=== PATIENT | female | born 2000 | race Caucasian/White ===

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

== ENCOUNTER 2022-08-10 14:04 | Outpatient (REF) | payer MEDICAID, SELFPAY ==
[2022-08-12 11:33] LABS: COVID-19 RT-PCR UVMMC Result Negative (Negative)
== END 2022-08-10 14:05 | disposition home or self-care (01) ==
LOC: LBN 14:04
PROVIDERS: PCP Nurse Practitioner Family; Visit Provider Nurse Practitioner Family
DX: Z20.822 Contact with and (suspected) exposure to COVID-19 (principal)
CPT/HCPCS: U0003

== ENCOUNTER 2023-10-24 14:34 | Outpatient (REF) | payer MEDICAID, SELFPAY ==
--- NOTE | 2023-10-24 14:00 | PAPFT_PTH ---
PATIENT: Kathryn Gonzales LOC: [facility] U#:[id number] AGE/SX: 23/F ROOM: RE10/24/[address]: SCOOBY Colin : 2000 BED: DIS: 10/24/2023 SPEC #: [id number] RECD: 10/25/23 12:48 STATUS: BERHANE REQ #: [id number] DANDY: 10/24/23 14:[address]: Marilynn Yuen DEPT: COUNTS INCLUDE 234 BEDS AT THE [facility] Cytology RECD BY: Rowan Wing Tissues: 1 - CX/ENDOCX FOR PAP SMEARS Procedures: PAP THIN PREP/[facility] Screening Comments: [id number] (CHLAMYDIA/GC)
[2023-10-26 13:47] LABS: Chlamydia Result Negative (Negative); GC Result Negative (Negative)
== END 2023-10-24 14:35 | disposition home or self-care (01) ==
LOC: LBN 14:34
PROVIDERS: PCP Nurse Practitioner Family; Visit Provider Nurse Practitioner Family
DX: Z12.4 Encounter for screening for malignant neoplasm of cervix (principal); Z11.3 Encounter for screening for infections with a predominantly sexual mode of transmission
CPT/HCPCS: 87491; 87591; 88142

== ENCOUNTER 2023-10-26 05:21 | Outpatient (CLI) | payer MEDICAID, SELFPAY ==
[2023-10-26 13:51] LABS: Anion Gap 9.7 mmol/L (3-11); BUN 16 mg/dL (7-18); CO2 27.3 mmol/L (21.0-32.0); CREATININE 0.8 mg/dL (0.55-1.02); Calcium 9.4 mg/dL (8.5-10.1); Calculated LDL 73 mg/dL (<100); Chloride 105 mmol/L (98-107); Cholesterol 157 mg/dL (<200); Estimated GFR 107.44 (mL/min/1.73m2); Glucose 85 mg/dL (74-106); HDL Cholesterol 69 mg/dL (40-60); Potassium 4.3 mmol/L (3.5-5.1); Sodium 142 mmol/L (136-145); TSH (W/Ref FT4) 1.78 uIU/mL (0.36-3.74); Triglyceride 77 mg/dL (<150)
== END 2023-10-26 05:22 | disposition home or self-care (01) ==
PROVIDERS: PCP Nurse Practitioner Family; Visit Provider Nurse Practitioner Family
DX: Z00.00 Encounter for general adult medical examination without abnormal findings (principal)
CPT/HCPCS: 36415; 80048; 80061; 84443

== ENCOUNTER 2024-07-06 11:13 | Outpatient (CLI) | payer MEDICAID, SELFPAY ==
[2024-07-06 12:14] LABS: Abs Immature Grans 0.01 10^3/uL (0.0-0.06); Absolute Basophil Count 0.04 10^3/uL (0.0-0.2); Absolute Lymphocyte Count 2.43 10^3/uL (1.2-3.4); Absolute Monocyte Count 0.33 10^3/uL (0.1-0.8); Absolute Neutrophil Count 2.53 10^3/uL (1.2-6.7); Basophils % 0.7 %; Eosinophils % 1.8 %; HCT 39.4 % (36.0-46.0); HGB 13.1 g/dL (11.2-15.7); Immature Grans % 0.2 %; Lymphocytes % 44.7 %; MCH 29.8 pg (27.0-33.0); MCHC 33.2 % (32.0-36.0); MCV 90 fL (80-95); MPV 10.8 fL (8.0-11.0); Monocytes % 6.1 %; Neutrophils % 46.5 %; Platelet Count 256 10^3/uL (130-400); RBC 4.39 10^6/uL (3.93-5.22); RDW 11.5 % (11.7-14.6); RDW-SD 37.6 fL; WBC 5.44 10^3/uL (4.4-10.8)
[2024-07-06 12:59] LABS: ALT 26 U/L (14-59); AST 14 U/L (15-37); Albumin 3.5 g/dL (3.4-5.0); Alkaline Phosphatase 52 U/L (46-116); Anion Gap 6.5 mmol/L (3-11); BUN 14 mg/dL (7-18); Bilirubin, Total 0.26 mg/dL (0.2-1.0); CO2 29.5 mmol/L (21.0-32.0); CREATININE 0.9 mg/dL (0.55-1.02); Chloride 107 mmol/L (98-107); Glucose 90 mg/dL (74-106); Lipase 30 U/L (<78); Potassium 4.2 mmol/L (3.5-5.1); Sodium 143 mmol/L (136-145)
[2024-07-06 13:05] LABS: Calcium 8.9 mg/dL (8.5-10.1)
== END 2024-07-06 11:14 | disposition home or self-care (01) ==
LOC: LBO 11:15
PROVIDERS: PCP Nurse Practitioner Family; Visit Provider Nurse Practitioner Family
DX: R10.13 Epigastric pain (principal)
CPT/HCPCS: 36415; 80053; 83690; 85025

== ENCOUNTER 2024-07-27 00:14 | Outpatient (CLI) | payer MEDICAID, SELFPAY ==
--- NOTE | 2024-07-27 06:30 | DI.CT_ITS ---
Exam(s) CT ABDOMEN PELVIS W EXAM: CT ABDOMEN PELVIS W CLINICAL HISTORY: ? pancreatitis,epigastric pain,r10.13 TECHNIQUE: Imaging Protocol: Axial computed tomography images with coronal and sagittal reformatted images were created and reviewed. CONTRAST MATERIAL: Intravenous: Omnipaque 350 Contrast volume:75 mL Oral: Yes COMPARISON: CT CT ABD AND PELVIS W/CONTRAST from 04/04/2024 FINDINGS: ABDOMEN: Lung Bases: No acute abnormality. Liver: Normal density. No measurable mass. Portal, Superior Mesenteric, and Splenic Veins: Unremarkable. Gallbladder and Biliary Tract: No radiodense calculus or dilation. Pancreas: Normal density, no abnormal calcifications or inflammatory process. Spleen: Normal. Adrenals: No masses seen. Kidneys: Normal size, contour and axis. No radiodense stones or obstructive uropathy. No masses seen. Abdominal Aorta: Abdominal portion non-dilated. Bowel: No obstruction or bowel wall thickening. No evidence of appendicitis. Peritoneal Cavity: No ascites, collection or mesenteric inflammatory response. No free air. Lymph Nodes: Within normal limits. Bones: Within normal limits for the patient's age. Soft Tissues: Unremarkable. PELVIS: Bladder: Symmetric distention, no gross wall thickening. Reproductive Organs: Unremarkable as visualized. Lymph Nodes: Within normal limits. Bones: Within normal limits for the patient's age. IMPRESSION: No acute abdominal or pelvic process. RADIATION DOSE DELIVERED: 224.15mGy.cm Total DLP DATA REPOSITORY: All CT scans at this facility are submitted to the National Radiology Data Registry (NRDR) Dose Index Registry (DIR) with the [employer] (ACR). RADIATION OPTIMIZATION: All CT scans at this facility use at least one of these dose optimization te chniques: automated exposure control; mA and/or kV adjustment per patient size (includes targeted exa ms where dose is matched to clinical indication); or iterative reconstruction.
[2024-07-27] MEDS: Barium Sulfate 2% W/V-Berry Smoothie 450 ML BTL PO ×2 (07:59→08:00)
[2024-07-27] MEDS: Normal Saline - Diluent 50 ML VIAL IJ (10:27)
[2024-07-27] MEDS: Omnipaque 350 MG/ML 100 ML BTL 75 ML IJ (10:28)
== END 2024-07-27 00:34 ==
LOC: DI 00:14
PROVIDERS: PCP Nurse Practitioner Family; Visit Provider Nurse Practitioner Family
DX: R10.13 Epigastric pain (principal)
CPT/HCPCS: 74177; J3490

== ENCOUNTER 2024-09-11 00:28 | Outpatient (CLI) | payer MEDICAID, SELFPAY ==
--- NOTE | 2024-09-11 05:45 | DI.US_ITS ---
Exam(s) US ABDOMEN LIMITED EXAM: US ABDOMEN LIMITED CLINICAL HISTORY: epigastric pain, ? cholelithiasis, pre rome scan TECHNIQUE: Ultrasound abdomen performed using standard protocol. COMPARISON: CT CT ABDOMEN PELVIS W from 07/27/2024 FINDINGS: LIVER: Normal size. Normalechogenicity. No focal liver lesions are seen.. GALLBLADDER: No evidence of cholelithiasis. No evidence of wall thickening. No pericholecystic fluid identified. PERKINS'S SIGN: Negative. BILIARY SYSTEM: No intrahepatic or extrahepatic biliary ductal dilation. RIGHT KIDNEY: Normal size. No evidence of renal calculi. No evidence of hydronephrosis. No suspicious renal mass. No cyst identified. PANCREAS: Normal where visualized. ABDOMINAL AORTA AND IVC: Visualized portions normal caliber. ASCITES: None seen. IMPRESSION: Normal sonographic appearance of the right upper quadrant. DATA REPOSITORY:
--- NOTE | 2024-09-11 05:45 | DI.NM_ITS ---
Exam(s) NM HEPATOBILIARY CCK GRP EXAM: NM HEPATOBILIARY CCK GRP CLINICAL HISTORY: Mid epigastric pain,? cholelithiasis. TECHNIQUE: Injected dose: 5 mCi Tc-99 mebrofenin Initial dynamic images: 60 minutes Post-Gallbladder fillin.02 mcg/kg CCK intravenously over a 30min infusion. Additional images: 45 minute dynamic during CCK administration. COMPARISON: US US ABDOMEN LIMITED from 09/11/2024 FINDINGS: Normal hepatic transit time. Prompt excretion into the small bowel. Prompt excretion into the gallbladder. Gallbladder ejection fraction: Low gallbladder ejection fraction of 5 percent. IMPRESSION: Low gallbladder ejection fraction of 5 percent. SNM guidelines: Gallbladder visualization should be present by 3 hours. Delayed pdbvwqd-fq-nacvi hernandez sit beyond 60 min raises the suspicion for partial common bile duct (CBD) obstruction. Gallbladder ejection fraction <35% has a good correlation with acalculous disease (i.e., chronic acal culous cholecystitis, cystic duct syndrome, sphincter of Oddi disease).
[2024-09-11] MEDS: Sincalide 5 MCG VIAL 1.2 MCG IJ (11:23)
[2024-09-11] MEDS: Water,Injection,Sterile 10 ML VIAL IJ (11:24)
== END 2024-09-11 00:48 ==
LOC: DI 00:29
PROVIDERS: PCP Nurse Practitioner Family; Visit Provider Surgery
DX: R10.13 Epigastric pain (principal)
CPT/HCPCS: 78227; J2805; 76705

== ENCOUNTER 2024-10-24 05:58 | Day surgery (SDC) | payer MEDICAID, SELFPAY ==
--- NOTE | 2024-10-23 20:46 | HPE_ITS ---
Assessment and Plan Assessment and plan (1) Biliary dyskinesia: Status: Acute Assessment and plan: We reviewed the plan for laparoscopic cholecystectomy today, and I think Melody has a very good understanding of what to expect. We can proceed with surgery as planned History of Present Illness History of Present Illness Chief Complaint: Biliary dyskenesia Narrative: Kathryn underwent a HIDA scan that demonstrated a gallbladder ejection fraction of 5%. She remembers experiencing a little bit of nausea during the test as well. Otherwise, she has been doing okay. She continues to experience nonspecific upper abdominal discomfort, which remains occasionally sharp, but more commonly like a gnawing sensation. Since her last encounter, there have been no major interval changes with regards to the history. PFSH All Active Problems Biliary dyskinesia (Acute) Oral contraceptive pill surveillance (Chronic) Acne vulgaris (Chronic) Atopic dermatitis (Chronic) Medical History Epigastric pain Congenital deformity of right hand Surgical History Hx of wisdom tooth extraction No significant past surgical history Family History (Updated 11/02/23 @ 11:59 by Camila Art) Mother ADHD Depression Anxiety Father No problems noted. Brother No problems noted. Maternal Grandfather Prostate cancer Depression Maternal Grandmother Skin cancer Diabetes Pre-Diabetes Paternal Grandfather No problems noted. Paternal Grandmother No problems noted. Social History (Updated 11/02/23 @ 12:02 by Camila Art) Smoking/Tobacco Use Status: Never Second Hand Exposure: No Smoking risk assessment performed?: Yes Alcohol Intake: never Drug use: Never Substance use type: does not use Adopted: No Caregiver/Support person: No Household members: family Housing: house Communication Needs: None Education Level: college Pets and animals: Yes Pets and animals: dog(s) Sexually active: No Do you think of yourself as: straight/heterosexual Current gender identity: female What is your relationship status?: refused to answer How often do you talk on the phone with friends or family?: three or more times per week How often do you get together with friends or relatives?: three or more times per week How often do you attend mu-ism or protestant services?: 1-3 times per year Do you belong to any clubs or organized social groups?: yes Panel score (0-1 are the most socially isolated patients): 2 What type of physical activity do you participate 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, 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 Duration: 45-60 minutes/day Frequency: daily Tricia/Orthodox: Jain Special tricia needs: No Seatbelt use: always Helmet use: Yes Helmet use: always Drive intox or ride w/intox taxi 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: No Do you feel safe at home: Yes Do you feel safe in your relationship?: Yes Victim of physical abuse: No Victim of emotional abuse: No Victim of sexual abuse: No Would you like helpful sources: No Female Reproductive History Menstrual Duration of menses: 6-7 days control method: pills History History 0 Para Hx # Term Pregnancies Multiple births Hx # Pregnancies Ectopic pregnancies AB induced Hx Number of Living Children AB spontaneous Meds Allergies and Home Medications Allergies Allergy/AdvReac Type Severity Reaction Status Date / Time codeine Allergy rash with Verified 10/24/24 06:55 tylenol with codeine Home Medications ?Medication ?Instructions ?Recorded ?Confirmed ?Type norgestimate 0.18 mg/0.215 mg/0.25 1 tab PO DAILY #168 tabs 10/24/23 10/24/24 Rx mg-ethinyl estradiol 25 mcg tablet (Bkk-Nx-Tzldufcb) omeprazole 20 mg capsule,delayed 20 mg PO BID #180 caps 09/03/24 10/24/24 Rx release Exam Const General: cooperative, healthy appearing and not in acute distress Neck Neck: normal visual inspection, no lymphadenopathy and supple Resp Effort & Inspection: normal respiratory effort Auscultation: clear to auscultation bilaterally Cardio Jugular venous pressure: no JVD Rate: regular rate Rhythm: regular rhythm Heart Sounds: S1 normal and S2 normal GI Inspection: normal to inspection Palpation: soft, no guarding, no hernias and nontender Percussion: normal to percussion Auscultation: normal bowel sounds Neuro General: patient alert, patient awake and patient oriented x3 Psych Appearance: grossly normal
--- NOTE | 2024-10-23 20:47 | ROE_ITS ---
Operative Note Operative Note PRE-OP DIAGNOSIS: Biliary dyskinesia POST-OP DIAGNOSIS: same PROCEDURE: Laproscopic cholecystectomy SURGEON: Jaylon Martinez SPORTS PSYCHOLOGIST: Luis Ko ANESTHESIA TYPE: Local By Surgeon and General LMA/ETT Refer to Anesthesia Record ESTIMATED BLOOD LOSS: 25 PATHOLOGY: other (Gallbladder) COMPLICATIONS: None Patient was transported to: PACU Patient's condition: stable Indications: Melody is a 24-year-old woman with symptomatic biliary dyskinesia Findings: Filmy adhesions of the gallbladder body and infundibulum Procedure Description: After satisfactory induction of general anesthesia, I prepped and draped the abdomen in usual fashion. Next, I began with a periumbilical incision. I dissected down to the fascia and establish pneumoperitoneum using a 5 mm optical viewing port. I then insufflated the peritoneal cavity. Next I inserted a 5 mm 30 degree scope and examined the underlying viscera. There was no evidence of injury created upon entry. I then placed the patient in some reverse Trendelenburg and left side down positioning. Then, with the assistance of the laparoscope, I used local anesthetic to anesthetize the midepigastric and 2 right upper quadrant port sites. Under the vision of the laparoscope, I passed 2 more 5 mm ports. I then grasped the gallbladder fundus and elevated cephalad. This allowed excellent triangulation of the gallbladder infundibulum. The gallbladder was dropped back down into its normal position, and I moved the cam era over to the right anterior axillary port and upsized the umbilicus to a 12 mm port. 1 last 5 mm port was added to the right mid abdomen. I moved the camera back to the umbilical position, and turned my attention back to the gallbladder. Again, the dome was retracted cephalad. I began by dissecting the gallbladder infundibulum. There were mostly thin filmy adhesions that were easily divided. With the assistance of indocyanine green, I worked in a lateral to medial fashion. Once I skeletonized the cystic duct and cystic artery, with a satisfactory critical view of safety, I doubly clipped and divided them. I then used electrocautery to dissect the gallbladder off the gallbladder fossa. I passed the gallbladder into an Endo Catch bag and removed it by way of the umbilical site. I examined the surgical field. It was hemostatic. I then removed the 5 mm ports under the vision of the laparoscope. Finally, I removed the umbilical port site and closed the fascia with Vicryl stitches. Sites were irrigated, and the skin was closed with subcuticular stitches. Bandages were applied, patient was awakened from anesthesia, and transferred to the recovery unit. Date of Procedure: 10/24/24
--- NOTE | 2024-10-23 20:49 | PDOC.DSDIS_ITS ---
Date of service: 10/24/24 Discharge Plan Disposition Patient Disposition: Home Condition: Good Discharge Details Reason For Visit: Laproscopic cholecystectomy Attending Provider: Jaylon Martinez Primary Care Provider: Marilynn Yuen Home Meds and New Rx's Prescriptions: Continued norgestimate-ethinyl estradiol [Qqn-Qa-Drffwknm] 0.18/0.215/0.25 mg-25 mcg tablet 1 tab PO DAILY Qty: 168 2RF Rx Instructions: Take 1 tablet daily omeprazole 20 mg capsule,delayed release(DR/EC) 20 mg PO BID Qty: 180 3RF Discharge Instructions Instructions: Cholecystectomy, Laparoscopic Surgery Additional Instructions: Melody, it was great seeing you today, and I hope you make a quick and unevent ful recovery from your gallbladder removal. Everything went very smoothly, and nothing was out of the ordinary. Expect to have some pain over the incision sites in the days to come. Using Tylenol and ibuprofen pozdor-bnt-fasfw for the first 2 days tends to be a very wide strategy. Have also provided a prescription for some tramadol if those other medications are not sufficient to help control your pain. I would also expect some bruising around the skin sites at the incisions. That is extremely common and nothing to worry about. You should be up and walking around, and moving a little bit more more each day. Please restrict her lifting to less than 10 pounds (or about a gallon of milk) until we see each other in the office. You can remove the bandages and shower tomorrow. Feel free to replace the Band-Aids if that is most comfortable for you. Will plan to continue your omeprazole for now, but I am optimistic you will start feeling better, and hopefully we can peel that down in the weeks to follow. If you need anything, or have any questions at all, please do not hesitate to ask. 1. Resume all of your regular medications. 2. Use ice packs over the incisions to help with pain and swelling 3. Alternate rpfo-vun-saifvuq Tylenol and ibuprofen every 6 hours for the first 2 days, then use them as needed. Use the prescription for tramadol if needed for more severe pain. 4. Leave bandage in place for 24 hours, then remove. 5. Shower with warm soapy water. Pat dry. Use a bandaid if needed to protect your clothing. 6. No soaking or tub baths until I see you in the office. 7. No heavy lifting until I see you in the office. 8. Call the office (or go directly to the emergency room after hours) if you notice any of the following: Develop chills (warm to touch), or if you have a thermometer and your temperature is above 101 Difficulty breathing or difficultly swallowing Persistent vomiting Any bleeding ? exceeding one tablespoon 9. Call your physician if the site where your intravenous was started becomes red, swollen, painful, and warm to touch. Activity:: no heavy lifting Remove Dressings/Wound Care:: 24 hours Shower/Bathe:: 24 hours Diet:: As Tolerated Discharge Orders Discharge Orders: Discharge Order (Routine); Ordered 10/23/24 Ordered By: Jaylon Martinez DS: Diagnosis Discharge Diagnosis (1) Biliary dyskinesia: Status: Acute Asessment and Plan: Outpatient postoperative follow-up
[2024-10-24] VITALS (26 sets, daily range): BP systolic 88–126; BP diastolic 39–75; PULSE 55–80; RESP 10–22; TEMP 36.4–37; O2SAT 98–100; BMI 20.4
[2024-10-24] MEDS: Lactated Ringers 1,000 ML 80 ML IV (06:53)
[2024-10-24] MEDS: Indocyanine green 25 MG VIAL 5 MG IVP (06:53)
[2024-10-24] MEDS: Acetaminophen 500 MG TAB 1000 MG PO (06:54)
[2024-10-24] MEDS: Gabapentin 300 MG CAP 600 MG PO (06:54)
[2024-10-24] MEDS: Celecoxib 200 MG CAP PO (06:54)
--- NOTE | 2024-10-24 07:06 | W.ANESPRE ---
General Info Date of Service Date Performed: 10/24/24 Height: 5 ft 4 in Weight: 54 kg Body Mass Index (BMI): 20.4 Surgical Procedure: Operation Date: 10/24/24 07:40 Proposed Procedure Side Surgeon p Cholecystectomy Laparoscopic Jaylon Martinez MD Meds Allergies and Home Medications Allergies Allergy/AdvReac Type Severity Reaction Status Date / Time codeine Allergy rash with Verified 10/24/24 06:55 tylenol with codeine Home Medication ?Medication ?Instructions ?Recorded norgestimate 0.18 mg/0.215 mg/0.25 1 tab PO DAILY #168 tabs 10/24/23 mg-ethinyl estradiol 25 mcg tablet (Iyw-Bp-Mnmhruzm) omeprazole 20 mg capsule,delayed 20 mg PO BID #180 caps 09/03/24 release Current Visit Medications: Current Medications Generic Name Dose Route Start Last Admin Trade Name Freq PRN Reason Stop Dose Admin Acetaminophen 1,000 mg 10/24/24 06:00 10/24/24 06:54 Acetaminophen 500 Mg Tab PO 10/24/24 23:59 1,000 mg PREOP LYDIA Administration Celecoxib 200 mg 10/24/24 06:00 10/24/24 06:54 Celecoxib 200 Mg Cap PO 10/24/24 23:59 200 mg PREOP LYDIA Administration Gabapentin 600 mg 10/24/24 06:00 10/24/24 06:54 Gabapentin 300 Mg Cap PO 10/24/24 23:59 600 mg PREOP LYDIA Administration Hydromorphone HCl 0.2 mg 10/23/24 20:48 Hydromorphone 2 Mg/Ml Syr IVP 11/22/24 20:47 Q1H PRN PRN Ringer's Solution 1,000 mls @ 80 mls/hr 10/24/24 06:00 10/24/24 06:53 IV 10/24/24 23:59 80 mls/hr INFUSION LYDIA Administration Cefazolin Sodium/Dextrose 2 gm in 50 mls @ 100 mls/hr 10/24/24 06:00 Ancef Duplex IVPB 10/24/24 23:59 PREOP LYDAI Ondansetron HCl 4 mg/ Sodium 52 mls @ 200 mls/hr 10/23/24 20:48 Chloride IVPB 11/22/24 20:47 Q6H PRN PRN IV Miscellaneous Supplies 1 each 10/24/24 06:00 Iv Access IV 10/24/24 23:59 DIRECTED LYDIA Indocyanine Green 5 mg 10/24/24 06:00 10/24/24 06:53 Indocyanine Green 25 Mg Vial IVP 10/24/24 23:59 5 mg PREOP LYDIA Administration Sodium Chloride 0 ml 10/24/24 06:00 Normal Saline Flush 10 Ml Syr IV 10/24/24 23:59 PRN PRN Sodium Chloride 0 ml 10/24/24 06:00 Normal Saline 10 Ml Vial IJ 10/24/24 23:59 DIRECTED PRN Sterile Water 0 ml 10/24/24 06:00 Water,Injection,Sterile 10 Ml Vial IJ 10/24/24 23:59 DIRECTED PRN Tramadol HCl 50 mg 10/23/24 20:48 Tramadol 50 Mg Tab PO 11/22/24 20:47 Q6H PRN PRN Pain PFSH Active Problems Active Problems: Problem Status Onset Code Biliary dyskinesia Acute K82.8 Oral contraceptive pill surveillance Chronic Z30.41 Acne vulgaris Chronic L70.0 Atopic dermatitis Chronic L20.9 Medical History Medical History Epigastric pain Congenital deformity of right hand Surgical History Surgical History Hx of wisdom tooth extraction No significant past surgical history Tobacco Smoking/Tobacco Use Status: Never Passive smoking exposure: No Second hand exposure: No Alcohol Alcohol Intake: never Substance Use Substance use: Never Substance use type: does not use Prental History History 0 Para Hx # Term Pregnancies Multiple births Hx # Pregnancies Ectopic pregnancies AB induced Hx Number of Living Children AB spontaneous Vital Signs and Lab Results Vital Signs Most Recent Vital Signs in EMR: Most Recent Vital Signs Temp Pulse Resp BP Pulse Ox 37.0 C 77 14 126/72 100 10/24/24 06:35 10/24/24 06:35 10/24/24 06:35 10/24/24 06:35 10/24/24 06:35 Lab Results Blood Type / Crossmatch: No Data to Display Complete Blood Count: No Data to Display Complete Metabolic Panel: No Data to Display Liver Function Panel: No Data to Display Coagulation Panel: No Data to Display Cardiac Panel: No Data to Display Arterial Blood Gas: No Data to Display Venous Blood Gas: No Data to Display Pancreas Panel: No Data to Display Thyroid Panel: No Data to Display Infectious Disease: No Data to Display Blood Cultures: No Data to Display Toxicology Panel: No Data to Display Panel: No Data to Display Anesthesia Assessment and Plan Anesthesia History Personal History: No History of Anesthesia Complications Family History: No Family History of Anesthesia Complications Exercise Tolerance Exercise Tolerance: Metabolic Equivalents>4 Pertinent Negatives Pertinent Negatives: No Symptoms of GERD Cardiac & Pulmonary Exam Cardiac Exam: Normal S1/S2 Heart Sounds Pulmonary Exam: Clear Bilateral Breath Sounds Implantable Cardiac Device Does patient have a Pacemaker or an ICD?: No Airway Exam Known Difficult Airway: No Mallampati Class: 2 Mouth Opening: Normal (> 3cm) Thyromental Distance: Greater than 3 cm Neck Range of Motion: Full ROM Neck Circumference: Normal Teeth Condition: Normal Dentition ASA Classification ASA Score: ASA 1 Emergency Case?: No NPO Status NPO Status: NPO Clears >2 hours, Solids >8 hours Status Status: Negative HCG Anesthesia Plan Resuscitation Status: Full Code Anesthesia Technique: General Anesthesia Airway Planned: Endotracheal Tube Monitors Used: Standard Monitors
[2024-10-24] MEDS: ceFAZolin 2 GM/50 ML BAG IVPB (07:40)
[2024-10-24] MEDS: Bupivacaine 0.25% Pres-Free W/EPI 30 ML VIAL (08:12)
--- NOTE | 2024-10-24 08:58 | GB_PTH ---
PATIENT: Kathryn Gonzales LOC: [facility] U#:[id number] AGE/SX: 24/F ROOM: RE10/24/[address]: Jaylon Martinez MD : 2000 BED: DIS: 10/24/2024 SPEC #: [id number] RECD: 10/24/24 12:45 STATUS: BERHANE REQ #: [id number] DANDY: 10/24/24 08:[address]: Jaylon Martinez DEPT: Surgical Specimen RECD BY: Rowan Wing ENTERED: 10/24/24 12:46 SP TYPE: GB OTHR DR: SCOOBY Colin Tissues: 1 - GALLBLADDER Procedures: GROSS AND MICRO LEVEL 3 Comments: [id number]
--- NOTE | 2024-10-24 10:00 | W.ANESPOSTOP ---
Postoperative Evaluation Date, Time and Location Date Performed: 10/24/24 Time Performed: 10:00 Patient Location: PACU Vital Signs Most Recent Imported Vital Signs: Most Recent Vital Signs Temp Pulse Resp BP Pulse Ox 36.5 C 68 18 105/66 100 10/24/24 09:40 10/24/24 09:41 10/24/24 09:41 10/24/24 09:41 10/24/24 09:41 Pain Score Most Recent Pain Score: Most Recent Pain Score Pain Level 0 10/24/24 09:40 Assessment Mental Status: Awake (Alert & Oriented to Patient Baseline) Airway and Respiratory Function: Patent airway with normal (patient baseline) respiratory exam Cardiovascular Function: Hemodynamically Stable Hydration Status: Adequately Hydrated Nausea & Vomiting: No Nausea or Vomiting Pain: Pt. Denies Any Pain Peripheral Nerve Block: Patient did not receive a nerve block
[2024-10-24] MEDS: traMADol 50 MG TAB PO (10:51)
== END 2024-10-24 12:10 | disposition home or self-care (01) ==
LOC: SUR 05:58
PROVIDERS: PCP Nurse Practitioner Family; Visit Provider Surgery
PROC: 0FT44ZZ Resection of Gallbladder, Percutaneous Endoscopic Approach (ICD-10-PCS; CPT 47562; principal; 2024-10-24 07:30)
DX: K81.1 Chronic cholecystitis (principal); R59.9 Enlarged lymph nodes, unspecified
CPT/HCPCS: 47562; 81025; 88304; J0690; J1100; J2250; J2405; J2704